=== PATIENT | male | born 1975 | race Hispanic/Latino ===

== ENCOUNTER 2021-09-22 18:56 | Inpatient (IN) | payer BC ==
[2021-09-22] MEDS ORDERED: ONDANSETRON 4 MG/2 ML VIAL ONE (19:29)
[2021-09-22] MEDS ORDERED: KETOROLAC 30 MG/ML INJ ONE (19:29)
[2021-09-22] MEDS ORDERED: MORPHINE 4 MG/ML SYR ONE ×2 (19:29→20:39)
[2021-09-22] MEDS ORDERED: NA CHLORIDE 0.9% 1,000 ML ONE (19:29)
[2021-09-22 19:53] LABS: Basophils % 0.5 % (0-1.3); Hematocrit 42.2 % (39.6-49.0); Lymphocytes % 15.7 % (15.3-44.8); MPV 7.3 fL (7.6-11.3); RBC Red Blood Cell Count 5.06 M/uL (4.33-5.43)
[2021-09-22 19:55] LABS: Protime INR 1.02
--- NOTE | 2021-09-22 20:06 | RAD REPORT ---
EXAM DESCRIPTION: RAD - Chest Single View - 09/22/2021 7:48 pm CLINICAL HISTORY: ABDOMINAL DISTENTION COMPARISON: Chest Pa And Lat (2 Views) dated 12/08/2016 FINDINGS: Lines: None. Lungs: No evidence of edema or pneumonia. Pleural: No significant pleural effusions or pneumothorax. Cardiac: The heart size is within normal limits. Bones: No acute fractures. Other: IMPRESSION: No acute cardiopulmonary disease.
--- NOTE | 2021-09-22 20:11 | RAD REPORT ---
EXAM DESCRIPTION: US - Abdomen Exam Limited - 09/22/2021 7:55 pm CLINICAL HISTORY: ABD PAIN COMPARISON: No comparisons FINDINGS: Cholelithiasis is present. No gallbladder wall thickening. No pericholecystic fluid. Negat mateo sonographic Oliver's sign. The common bile duct measures 5 millimeters is normal. IMPRESSION: Cholelithiasis without sonographic evidence of acute cholecystitis.
[2021-09-22 20:18] LABS: ALT/SGPT 35 U/L (12-78); AST/SGOT 22 U/L (15-37); Albumin 4.1 g/dL (3.4-5.0); Alkaline Phosphatase 67 U/L (45-117); BUN Blood Urea Nitrogen 15 mg/dL (7-18); Bicarbonate 25 mmol/L (21-32); Bilirubin Direct 0.1 mg/dL (0-0.2); Bilirubin Total 0.5 mg/dL (0.2-1.0); Glucose Level 142 mg/dL (74-106); Lipase 74 U/L (73-393); Magnesium 2.3 mg/dL (1.8-2.4); NT PRO-BNP 14 pg/mL (<125); Potassium 3.5 mmol/L (3.5-5.1); Protein, Total 8.3 g/dL (6.4-8.2); Sodium Level 141 mmol/L (136-145); Troponin (Emerg Dept Use Only) < 0.02 ng/mL (0.0-0.045)
[2021-09-22] MEDS ORDERED: FAMOTIDINE 20 MG/2 ML VIAL IV ONE (20:35)
[2021-09-22] MEDS ORDERED: PIPERACIL/TAZO 3.375 GM VIAL IV ONE (20:35)
[2021-09-22] MEDS ORDERED: NA CHLORIDE 0.9% 100 ML ONE (20:35)
--- NOTE | 2021-09-22 20:43 | ER ---
Nurse's Notes [facility] Name: Parminder Galindo Age: 45 yrs Sex: Male : 1975 Arrival Date: 09/22/2021 Time: 18:58 Bed 19 Private MD: Diagnosis: Abdominal tenderness;Acute cholecystitis;Essential (primary) hypertension Presentation: 09/22 19:14 Chief complaint: Patient states: upper abd pain radiates to right flank. Coronavirus df1 screen: Vaccine status: Patient reports receiving the 2nd dose of the covid vaccine. Ebola Screen: Patient negative for fever greater than or equal to 101.5 degrees Fahrenheit, and additional compatible Ebola Virus Disease symptoms Patient denies exposure to infectious person. Patient denies travel to an Ebola-affected area in the 21 days before illness onset. Initial Sepsis Screen: Does the patient meet any 2 criteria? No. Patient's initial sepsis screen is negative. Does the patient have a suspected source of infection? No. Patient's initial sepsis screen is negative. Risk Assessment: Do you want to hurt yourself or someone else? Patient reports no desire to harm self or others. Onset of symptoms was September 22, 2021 at 13:00. 19:14 Method Of Arrival: Ambulatory df1 19:14 Acuity: CRUZITO 3 df1 20:12 Note Pt present with upper abd pain radiates to right flank intermittent x 2 weeks. df1 Today's episode started at 1300. Pt scheduled for CT scan this Sunday. Historical: - Allergies: 19:16 No Known Allergies; df1 - Home Meds: 19:16 losartan 25 mg oral tab 1 tab [Active]; df1 - PMHx: 19:16 Hypertensive disorder; df1 - PSHx: 19:16 umbilical hernia; df1 - Immunization history:: Adult Immunizations not up to date, Client reports receiving the 2nd dose of the Covid vaccine. - Social history:: Smoking status: Patient denies any tobacco usage or history of. - Family history:: not pertinent. Screenin:27 Abuse screen: Denies threats or abuse. Nutritional screening: No deficits noted. cc4 Tuberculosis screening: No symptoms or risk factors identified. Fall Risk None identified. Assessment: 19:27 General: Appears distressed, uncomfortable, Behavior is cooperative, anxious, restless. cc4 Pain: Complains of pain in abdomen and right upper quadrant and epigastric area Pain currently is 10 out of 10 on a pain scale. at worst was 10 out of 10 on a pain scale. Quality of pain is described as aching, stabbing, gnawing, Pain began since 1300 today. Neuro: No deficits noted. Level of Consciousness is awake, alert, obeys commands, Oriented to person, place, time, situation. Cardiovascular: No deficits noted. Denies chest pain, Rhythm is sinus rhythm. Respiratory: No deficits noted. Airway is patent Breath sounds are clear bilaterally. GI: Abdomen is flat, non-distended, Bowel sounds present X 4 quads. Abd is soft X 4 quads Abdomen is tender to palpation in right upper quadrant and epigastric area Reports nausea. : No signs and/or symptoms were reported regarding the genitourinary system. EENT: No deficits noted. No signs and/or symptoms were reported regarding the EENT system. Eyes clear. Nares are clear Oral mucosa is dry. Derm: No deficits noted. Skin is intact. Musculoskeletal: No deficits noted. Capillary refill < 3 seconds, Range of motion: intact in all extremities. 19:30 Reassessment: # 20 g angiocath inserted right AC x 1 attempt \\T\\ converted to saline lock cc4 with blood drawn \\T\\ sent to lab; EKG completed; IV NS hung to saline lock right AC \\T\\ infusing \\T\\ bolus rates with no s/sx's of infiltration; medicated as ordered for pain/nausea. 20:00 Reassessment: PCXR completed; US of abdomen completed \\T\\ bedside; reports decreasing cc4 abd. pain to 7/10 on pain scale; calm \\T\\ present time; \\T\\ bedside. 20:45 Reassessment: Reports increasing pain right upper quad abd with Dr. Angelo in to see; cc4 morphine 4mg repeated slow IVP; pepcid 20 mg given slow IVP; IVPB Zosyn 3.375 mg hung \\T\\ infusing \\T\\ 200 m/hr/pump with no difficulty. 20:55 Reassessment: TO CT via stretcher. cc4 21:15 Reassessment: Returned from CT via stretcher; reports decreasing abd. pain 6/10 on pain cc4 scale. 21:48 Reassessment: Swabbed for covid-19 \\T\\ sent to lab, tol. snow. cc4 22:00 Reassessment: JULIENNE Zarate in to see with c/o increasing right upper quad \\T\\ cc4 epigastric pain to 8/10 on pain scale; new orders rec'd. 22:23 Reassessment: Medicated for pain; \\T\\ bedside; will con't to monitor. cc4 23:07 Reassessment: Patient appears in no apparent distress at this time. Awakened from cc4 sleep; reports abd. apin decreased to "5" on pain scale; VSS; \\T\\ bedside; instructed on admission into hospital with V/U. Patient states feeling better. Vital Signs: 19:14 BP 157 / 120; Pulse 66; Resp 18; Temp 97.5; Pulse Ox 100% on R/A; Weight 82.55 kg; df1 Height 5 ft. 6 in. (167.64 cm); Pain 10/10; 19:27 BP 150 / 96; Pulse 79; Resp 20; Temp 97.5(O); Pulse Ox 100% on R/A; cc4 20:00 BP 159 / 94; Pulse 76; Resp 20; Pulse Ox 100% on R/A; cc4 21:38 BP 156 / 90; Pulse 56; Resp 18; Pulse Ox 99% on R/A; cc4 22:00 BP 164 / 96; Pulse 85; Resp 20; Pulse Ox 99% on R/A; cc4 23:07 BP 160 / 92; Pulse 54; Resp 16; Temp 98.0(O); Pulse Ox 95% on R/A; cc4 19:14 Body Mass Index 29.38 (82.55 kg, 167.64 cm) df1 ED Course: 18:58 Patient arrived in ED. am2 19:16 Triage completed. df1 19:26 Benjamin Angelo MD is Attending Physician[facility] 19:27 Patient has correct armband on for positive identification. Placed in gown. Bed in low cc4 position. Call light in reach. Side rails up X 1. oracle consultant on. Pulse ox on. NIBP on. 19:27 EKG completed in triage. Results shown to MD. EKG done per protocol. Labs ordered per cc4 protocol. Drawn by ED staff. X-ray ordered. CT ordered. 19:32 Rozina Omer, RN is Primary Nurse. cc4 19:32 Basic Metabolic Panel Sent. cc4 19:32 CBC with Automated Diff Sent. cc4 19:32 CT Abd/Pelvis - IV Contrast Only Sent. cc4 19:32 US Abdomen Limited Sent. cc4 19:32 Lipase Sent. cc4 19:32 Basic Metabolic Panel Sent. cc4 19:32 Troponin (emerg Dept Use Only) Sent. cc4 19:32 PT-INR Sent. cc4 19:32 NT PRO-BNP Sent. cc4 19:32 Magnesium Sent. cc4 19:33 LFT's Sent. cc4 19:33 XRAY Chest (1 view) Sent. cc4 19:33 CBC with Diff Sent. cc4 19:48 XRAY Chest (1 view) In Process Unspecified. EDMS 19:55 US Abdomen Limited In Process Unspecified. EDMS 20:37 Theo Hitchcock MD is Hospitalizing Provider. henrietta 20:56 Arm band placed on right wrist. Emesis basin given. cc4 20:57 CT Abd/Pelvis - IV Contrast Only In Process Unspecified. EDMS 21:45 COVID-19 SARS RT PCR (Document "Date of Onset" if Symptomatic) Sent. cc4 21:45 SARS-COV-2 RT PCR Sent. cc4 23:24 No provider procedures requiring assistance completed. cc4 23:25 IV Converted IV to saline lock on right antecubital area cc4 Administered Medications: 19:30 Drug: Zofran (Ondansetron) 4 mg Route: IVP; Site: right antecubital; cc4 20:00 Follow up: Response: No adverse reaction cc4 19:30 Drug: NS 0.9% 1000 ml Route: IV; Rate: 1 bolus; Site: right antecubital; cc4 21:15 Follow up: IV Status: Completed infusion; IV Intake: 1000ml cc4 19:32 Drug: morphine 4 mg Route: IVP; Site: right antecubital; cc4 20:00 Follow up: Response: No adverse reaction; Pain is decreased cc4 19:34 Drug: Ketorolac 30 mg Route: IVP; Site: right antecubital; cc4 20:00 Follow up: Response: No adverse reaction; Pain is decreased cc4 20:45 Drug: Zosyn (piperacillin-tazobactam) 3.375 grams Route: IVPB; Infused Over: 60 mins; cc4 Site: right antecubital; 21:15 Follow up: Response: No adverse reaction cc4 21:30 Follow up: Response: No adverse reaction; IV Status: Completed infusion; IV Intake: cc4 100ml 20:45 Drug: Pepcid (famotidine) 20 mg Route: IVP; Site: right antecubital; cc4 21:15 Follow up: Response: No adverse reaction; Pain is decreased cc4 20:45 Drug: morphine 4 mg Route: IVP; Site: right antecubital; cc4 21:15 Follow up: Response: No adverse reaction; Pain is decreased cc4 22:12 Drug: [place] (HYDROcodone-acetaminophen) (7.5 mg-325 mg) 1 tabs Route: PO; cc4 22:30 Follow up: Response: No adverse reaction; Pain is decreased cc4 22:12 Drug: morphine 2 mg Route: IVP; Site: right antecubital; cc4 22:30 Follow up: Response: No adverse reaction; Pain is decreased cc4 Intake: 21:15 IV: 1000ml; Total: 1000ml. cc4 21:30 IV: 100ml; Total: 1100ml. cc4 Outcome: 20:42 Decision to Hospitalize by Provider. henrietta 23:24 Condition: improved cc 23:24 Admitted to Med/surg accompanied by tech, via stretcher, room 217, Report called to ccAlicia Bui RN. 23:24 Instructed on the need for admit, Demonstrated understanding of instructions. 09/23 00:11 Patient left the ED. 4 Signatures: Dispatcher [employer] Benjamin Kathleen MD MD cha Moreno, Amanda am2 Rozina Omer, RN RN cc4 Olga Payne df1
--- NOTE | 2021-09-22 20:43 | EDPHYS ---
Physician Documentation [facility] Name: Parminder Galindo Age: 45 yrs Sex: Male : 1975 Arrival Date: 09/22/2021 Time: 18:58 Bed 19 Private MD: ARY Physician Benjamin Angelo HPI: 09/22 20:32 This 45 yrs old Male presents to ER via Ambulatory with complaints of henrietta Abdominal Pain. 20:32 The patient presents with abdominal pain. henrietta Historical: - Allergies: 19:16 No Known Allergies; df1 - Home Meds: 19:16 losartan 25 mg oral tab 1 tab [Active]; df1 - PMHx: 19:16 Hypertensive disorder; df1 - PSHx: 19:16 umbilical hernia; df1 - Immunization history:: Adult Immunizations not up to date, Client reports receiving the 2nd dose of the Covid vaccine. - Social history:: Smoking status: Patient denies any tobacco usage or history of. - Family history:: not pertinent. ROS: 20:34 Constitutional: Negative for fever, chills, and weight loss, Eyes: Negative for injury, henrietta pain, redness, and discharge, ENT: Negative for injury, pain, and discharge, Neck: Negative for injury, pain, and swelling, Cardiovascular: Negative for chest pain, palpitations, and edema, Respiratory: Negative for shortness of breath, cough, wheezing, and pleuritic chest pain, Back: Negative for injury and pain, : Negative for injury, bleeding, discharge, and swelling, MS/Extremity: Negative for injury and deformity, Skin: Negative for injury, rash, and discoloration, Neuro: Negative for headache, weakness, numbness, tingling, and seizure, Psych: Negative for depression, anxiety, suicide ideation, homicidal ideation, and hallucinations, Allergy/Immunology: Negative for hives, rash, and allergies, Endocrine: Negative for neck swelling, polydipsia, polyuria, polyphagia, and marked weight changes, Hematologic/Lymphatic: Negative for swollen nodes, abnormal bleeding, and unusual bruising. 20:34 Abdomen/GI: Positive for abdominal pain, nausea and vomiting, of the epigastric area and right upper quadrant. Exam: 20:34 Constitutional: This is a well developed, well nourished patient who is awake, alert, henrietta and in no acute distress. Head/Face: Normocephalic, atraumatic. Eyes: Pupils equal round and reactive to light, extra-ocular motions intact. Lids and lashes normal. Conjunctiva and sclera are non-icteric and not injected. Cornea within normal limits. Periorbital areas with no swelling, redness, or edema. ENT: Nares patent. No nasal discharge, no septal abnormalities noted. Tympanic membranes are normal and external auditory canals are clear. Oropharynx with no redness, swelling, or masses, exudates, or evidence of obstruction, uvula midline. Mucous membranes moist. Neck: Trachea midline, no thyromegaly or masses palpated, and no cervical lymphadenopathy. Supple, full range of motion without nuchal rigidity, or vertebral point tenderness. No Meningismus. Chest/axilla: Normal chest wall appearance and motion. Nontender with no deformity. No lesions are appreciated. Cardiovascular: Regular rate and rhythm with a normal S1 and S2. No gallops, murmurs, or rubs. Normal PMI, no JVD. No pulse deficits. Respiratory: Lungs have equal breath sounds bilaterally, clear to auscultation and percussion. No rales, rhonchi or wheezes noted. No increased work of breathing, no retractions or nasal flaring. Back: No spinal tenderness. No costovertebral tenderness. Full range of motion. Male : Normal genitalia with no discharge or lesions. Skin: Warm, dry with normal turgor. Normal color with no rashes, no lesions, and no evidence of cellulitis. MS/ Extremity: Pulses equal, no cyanosis. Neurovascular intact. Full, normal range of motion. Neuro: Awake and alert, GCS 15, oriented to person, place, time, and situation. Cranial nerves II-XII grossly intact. Motor strength 5/5 in all extremities. Sensory grossly intact. Cerebellar exam normal. Normal gait. Psych: Awake, alert, with orientation to person, place and time. Behavior, mood, and affect are within normal limits. 20:34 ECG was reviewed by the Attending Physician. 20:34 Abdomen/GI: Inspection: abdomen appears normal, Bowel sounds: normal, active, Palpation: moderate abdominal tenderness, in the epigastric area and right upper quadrant, Liver: no appreciated palpable abnormalities, Hernia: not appreciated. Vital Signs: 19:14 BP 157 / 120; Pulse 66; Resp 18; Temp 97.5; Pulse Ox 100% on R/A; Weight 82.55 kg; df1 Height 5 ft. 6 in. (167.64 cm); Pain 10/10; 19:27 BP 150 / 96; Pulse 79; Resp 20; Temp 97.5(O); Pulse Ox 100% on R/A; cc4 20:00 BP 159 / 94; Pulse 76; Resp 20; Pulse Ox 100% on R/A; cc4 21:38 BP 156 / 90; Pulse 56; Resp 18; Pulse Ox 99% on R/A; cc4 22:00 BP 164 / 96; Pulse 85; Resp 20; Pulse Ox 99% on R/A; cc4 23:07 BP 160 / 92; Pulse 54; Resp 16; Temp 98.0(O); Pulse Ox 95% on R/A; cc4 19:14 Body Mass Index 29.38 (82.55 kg, 167.64 cm) df1 MDM: 19:27 Patient medically screened. henrietta 20:36 Differential diagnosis: cholecystitis, Cholelithiasis, gastritis, non-specific abd henrietta pain, pancreatitis, Peptic Ulcer Disease, Pyelonephritis. Data reviewed: vital signs, nurses notes, lab test result(s), EKG, radiologic studies, CT scan, plain films. Data interpreted: cafeteria monitor: rate is 100 beats/min, rhythm is regular, Pulse oximetry: on room air is 100 %. Test interpretation: by ED physician or midlevel provider: ECG, plain radiologic studies. Counseling: I had a detailed discussion with the patient and/or guardian regarding: the historical points, exam findings, and any diagnostic results supporting the discharge/admit diagnosis, lab results, radiology results, the need for further work-up and treatment in the hospital. 09/22 19:28 Order name: Basic Metabolic Panel [facility] 09/22 19:28 Order name: CBC with Diff [facility] 09/22 19:28 Order name: LFT's; Complete Time: 20:31 [facility] 09/22 19:28 Order name: Magnesium; Complete Time: 20:31 [facility] 09/22 19:28 Order name: NT PRO-BNP; Complete Time: 20:31 [facility] 09/22 19:28 Order name: PT-INR; Complete Time: 20:31 [facility] 09/22 19:28 Order name: Troponin (emerg Dept Use Only); Complete Time: 20:31 [facility] 09/22 19:28 Order name: XRAY Chest (1 view); Complete Time: 20:31 [facility] 09/22 19:28 Order name: Lipase; Complete Time: 20:31 [facility] 09/22 19:29 Order name: Basic Metabolic Panel; Complete Time: 20:31 [facility] 09/22 19:29 Order name: CBC with Automated Diff; Complete Time: 20:31 [facility] 09/22 21:09 Order name: COVID-19 SARS RT PCR (Document "Date of Onset" if Symptomatic) tt3 09/22 21:09 Order name: SARS-COV-2 RT PCR [facility] 09/22 22:16 Order name: Urine Dipstick-Ancillary [facility] 09/22 19:28 Order name: EKG; Complete Time: 19:30 [facility] 09/22 19:28 Order name: Cardiac monitoring; Complete Time: 19:33 [facility] 09/22 19:28 Order name: EKG - Nurse/Tech; Complete Time: 19:33 [facility] 09/22 19:28 Order name: IV Saline Lock; Complete Time: 19:33 [facility] 09/22 19:28 Order name: Labs collected and sent; Complete Time: 19:33 [facility] 09/22 19:28 Order name: US Abdomen Limited; Complete Time: 20:31 [facility] 09/22 19:28 Order name: CT Abd/Pelvis - IV Contrast Only; Complete Time: 22:00 [facility] 09/22 19:28 Order name: O2 Sat Monitoring; Complete Time: 19:33 [facility] 09/22 19:28 Order name: Urine Dipstick-Ancillary (obtain specimen); Complete Time: 22:11 [facility] EC:34 Rate is 62 beats/min. Rhythm is regular. QRS [place] is Normal. [place] interval is normal. QRS henri[place] interval is normal. QT interval is normal. No Q waves. T waves are Normal. No ST changes noted. Clinical impression: Normal ECG and No evidence of ischemia. Interpreted by me. Reviewed by me. Administered Medications: 19:30 Drug: Zofran (Ondansetron) 4 mg Route: IVP; Site: right antecubital; cc4 20:00 Follow up: Response: No adverse reaction cc4 19:30 Drug: NS 0.9% 1000 ml Route: IV; Rate: 1 bolus; Site: right antecubital; cc4 21:15 Follow up: IV Status: Completed infusion; IV Intake: 1000ml cc4 19:32 Drug: morphine 4 mg Route: IVP; Site: right antecubital; cc4 20:00 Follow up: Response: No adverse reaction; Pain is decreased cc4 19:34 Drug: Ketorolac 30 mg Route: IVP; Site: right antecubital; cc4 20:00 Follow up: Response: No adverse reaction; Pain is decreased cc4 20:45 Drug: Zosyn (piperacillin-tazobactam) 3.375 grams Route: IVPB; Infused Over: 60 mins; cc4 Site: right antecubital; 21:15 Follow up: Response: No adverse reaction cc4 21:30 Follow up: Response: No adverse reaction; IV Status: Completed infusion; IV Intake: cc4 100ml 20:45 Drug: Pepcid (famotidine) 20 mg Route: IVP; Site: right antecubital; cc4 21:15 Follow up: Response: No adverse reaction; Pain is decreased cc4 20:45 Drug: morphine 4 mg Route: IVP; Site: right antecubital; cc4 21:15 Follow up: Response: No adverse reaction; Pain is decreased cc4 22:12 Drug: [place] (HYDROcodone-acetaminophen) (7.5 mg-325 mg) 1 tabs Route: PO; cc4 22:30 Follow up: Response: No adverse reaction; Pain is decreased cc4 22:12 Drug: morphine 2 mg Route: IVP; Site: right antecubital; cc4 22:30 Follow up: Response: No adverse reaction; Pain is decreased cc4 Disposition Summary: 09/22/21 20:42 Hospitalization Ordered Hospitalization Status: Observation henrietta Provider: Theo Hitchcock cha Location: Telemetry/MedSurg (observation) henrietta Condition: Stable henrietta Problem: new henrietta Symptoms: have improved henrietta Bed/Room Type: Standard henrietta Room Assignment: 217(09/22/21 22:36) mw Diagnosis - Abdominal tenderness henrietta - Acute cholecystitis henrietta - Essential (primary) hypertension henrietta Forms: - Medication Reconciliation Form henrietta - SBAR form henrietta Signatures: Dispatcher [employer] EDMS Ileana Guzman RN RN mw Anderson, Corey, MD MD cha Cooper, Christie, RN RN cc4 Olga Payne df1 Corrections: (The following items were deleted from the chart) 22:36 20:42 henrietta mw
--- NOTE | 2021-09-22 21:06 | RAD REPORT ---
EXAM DESCRIPTION: CTAbdomen Pelvis W Contrast - 09/22/2021 8:57 pm CLINICAL HISTORY: ABD PAIN COMPARISON: Abdomen Exam Limited dated 09/22/2021 TECHNIQUE: CT of the abdomen and pelvis was performed. All CT scans are performed using dose optimization technique as appropriate and may include automated exposure control or mA/KV adjustment according to patient size. FINDINGS: Lower chest: Mild circumferential thickened distal esophagus. Liver: No acute abnormality or suspicious lesions. Biliary: Distended gallbladder with pericholecystic inflammatory changes. Stomach: No significant focal abnormality. Duodenum: No significant focal abnormality. Pancreas: No significant abnormality. Spleen: No significant abnormality. Adrenal: No suspicious lesions. Kidney/ureter: No hydronephrosis. No renal calculi. Retroperitoneum: No retroperitoneal adenopathy. Vascular: No aneurysm. Bowel: No significant focal abnormality. Peritoneum: No ascites or free air. Fat containing inguinal hernias. Bladder: Grossly unremarkable. Reproductive: No adnexal masses. Bones: No acute fracture. Other: n/a IMPRESSION: Pericholecystic inflammatory changes concerning for acute cholecystitis, despite the son ographic findings. Correlate with LFTs. HIDA scan could also better evaluate if clinically indicated.
[2021-09-22] MEDS ORDERED: HYDROCODONE/APAP 7.5/325 MG TAB ONE (22:02)
[2021-09-22] MEDS ORDERED: MORPHINE 2 MG/ML SYR ONE (22:04)
[2021-09-22 22:16] LABS: Urine Blood Trace-intact (Negative); Urine Glucose Negative (Negative); Urine Protein Negative (Negative)
--- NOTE | 2021-09-22 22:16 | P.HP ---
Certification for Inpatient Patient admitted to: Inpatient With expected LOS: <2 Midnights Patient will require the following post-hospital care: None Practitioner: I am a practitioner with admitting privileges, knowledge of patient current condition, hospital course, and medical plan of care. Services: Services provided to patient in accordance with Admission requirements found in Title 42 Section 412.3 of the Code of Federal Regulations Patient History Date of Service: 09/22/21 Primary Care Provider: Cathie Reason for admission: cholecystitis History of Present Illness: Mr. Galindo is a 45 yo male wiht HTN who presents with 10/10 RUQ pain beginning this afternoon after he ate a hamburger. This pain had been intermittent over the past two weeks. He reports nausea, vomiting, night sweats and chills. He was awaiting an outpatient CT scan when his symptoms worsened today so he reported to the ED. Received antibiotics, fluids and pain management in the ED. WBC 12.8, Glu 142. IMPRESSION: Pericholecystic inflammatory changes concerning for acute cholecystitis, despite the sonographic findings. - Past Medical/Surgical History -: HTN -: umbilical hernia repair Psychosocial/ Personal History: - Social History Smoking Status: Never smoker Alcohol use: No CD- Drugs: No Caffeine use: Yes Place of Residence: Home Review of Systems 10-point ROS is otherwise unremarkable General: Fever, Chills, Sweats Eyes: Unremarkable ENT: Unremarkable Respiratory: Unremarkable Cardiovascular: Unremarkable Gastrointestinal: Nausea, Vomiting, Abdominal Pain Genitourinary: Unremarkable Musculoskeletal: Unremarkable Integumentary: Unremarkable Neurological: Unremarkable Lymphatics: Unremarkable Physical Examination - Physical Exam General: Alert, In no apparent distress HEENT: Atraumatic, PERRLA, Mucous membr. moist/pink, EOMI, Sclerae nonicteric Neck: Supple, 2+ carotid pulse no bruit, No LAD, Without JVD or thyroid abnormality Respiratory: Clear to auscultation bilaterally, Normal air movement Cardiovascular: Regular rate/rhythm, Normal S1 S2 Gastrointestinal: Normal bowel sounds, Tenderness Musculoskeletal: No tenderness Integumentary: No rashes Neurological: Normal gait, Normal speech, Normal strength at 5/5 x4 extr, Normal tone, Normal affect Lymphatics: No axilla or inguinal lymphadenopathy - Studies Laboratory Data (last 24 hrs) 09/22/21 19:30: PT 11.7, INR 1.02 09/22/21 19:30: WBC 12.80 H, Hgb 14.1, Hct 42.2, Plt Count 287 09/22/21 19:30: Sodium 141, Potassium 3.5, BUN 15, Creatinine 1.25, Glucose 142 H, Magnesium 2.3, Total Bilirubin 0.5, AST 22, ALT 35, Alkaline Phosphatase 67, Lipase 74 Assessment and Plan - Problems (Diagnosis) (1) Cholecystitis Current Visit: Yes Status: Acute (2) HTN (hypertension) Current Visit: Yes Status: Chronic Qualifiers: Hypertension type: primary hypertension Qualified Code(s): I10 - Essential (primary) hypertension - Plan surgery consulted NPO after midinight, IVF hydration, IV antibiotics pain management as needed hydralazine PRN for BP spikes A1c pending SCDs Discharge Plan: Home Plan to discharge in: 48 Hours - Advance Directives Does patient have a Living Will: No Does patient have a Durable POA for Healthcare: No - Code Status/Comfort Care Code Status Assessed: Yes (full code ) Critical Care: No Time Spent Managing Pts Care (In Minutes): 70
[2021-09-22] MEDS: NA CHLORIDE 0.9% 1,000 ML IV SCH (23:54)
[2021-09-22] MEDS ORDERED: HYDRALAZINE HCL 20 MG/ML VIAL IV PRN (23:54)
[2021-09-22] MEDS ORDERED: ACETAMINOPHEN 500 MG TAB PO PRN (23:54)
[2021-09-23 00:08] VITALS: BMI 29.3
[2021-09-23] MEDS ORDERED: NA CHLORIDE 0.9% 0 ML ONE (00:20)
[2021-09-23] MEDS: PIPER TAZO 3.375 GM in NA CHLORIDE 0.9% 100 ML IV SCH ×4 (01:38→23:19)
[2021-09-23] MEDS: MORPHINE 4 MG/ML SYR IV PRN ×3 (01:39→09:45)
[2021-09-23] MEDS ORDERED: GLUCAGON 1 MG/VIAL IM PRN (02:23)
[2021-09-23] MEDS ORDERED: D50W 25 GM/50 ML SYRINGE IV PRN (02:23)
[2021-09-23 04:09] LABS: Basophils % 0.2 % (0-1.3); Hematocrit 41.8 % (39.6-49.0); Lymphocytes % 7.1 % (15.3-44.8); MPV 7.4 fL (7.6-11.3)
[2021-09-23 04:31] LABS: Albumin 3.6 g/dL (3.4-5.0); Bilirubin Total 0.9 mg/dL (0.2-1.0); Magnesium 2.3 mg/dL (1.8-2.4); Phosphorus 3.6 mg/dL (2.5-4.9); Potassium 4.5 mmol/L (3.5-5.1); Protein, Total 7.8 g/dL (6.4-8.2); Thyroid Stimulating Hormone 0.205 uIU/mL (0.360-3.740)
[2021-09-23] MEDS: ONDANSETRON 4 MG/2 ML VIAL IV PRN ×2 (04:37→09:45)
[2021-09-23] MEDS: INSULIN -REGULAR HUMAN 50 UNIT/0.5 ML ML SQ SCH ×4 (06:00→21:00)
[2021-09-23] MEDS ORDERED: INSULIN -REGULAR HUMAN 50 UNIT/0.5 ML ML SQ SCH (07:30)
[2021-09-23] MEDS: NA CHLORIDE 0.9% 1,000 ML IV SCH (07:39)
--- NOTE | 2021-09-23 11:08 | PREOPCON ---
Date of Consultation: 09/30/2021 Reason: Abdominal pain. History Of Present Illness: The patient is a 45-year-old gentleman who comes in with 2-week history of biliary colic which worsened yesterday after eating chili. In the past he has eaten hamburger wit h postprandial epigastric and right upper quadrant pain associated with nausea, vomiting, occasional bloating, belching and heartburn. No diarrhea or constipation. No blood in the stool. No dysuria o r hematuria. No sore throat, runny nose, cough, headaches, or dizziness. No chest pain. No fever o r chills. Review of Systems: Otherwise unremarkable. Past Medical History: Significant for hypertension. Past Surgical History: Umbilical hernia repair. Allergies: NO ALLERGIES. Social History: The patient does not smoke or drink. Family History: Significant for gallbladder disease. Physical Examination: Vital Signs: His vital signs are stable. He is currently afebrile. General: He is awake, alert, and oriented x3. Head and Neck: No evidence of icterus. Cranial nerves 2 through 12 are grossly within normal limits . Neck: No neck masses. No JVD. Throat clear. Neck is supple. Chest: Clear. Heart: S1 and S2. Abdomen: Soft, nondistended. Positive right upper quadrant tenderness. No rebound, rigidity, or gu arding. Extremities: Adequately perfused. Nontender. Neuro: Nonfocal. Laboratory Data: Reviewed. His white count is 13.8 with a left shift. Chemistry reviewed. His LFT s are within normal limits. His ultrasound shows cholelithiasis and CAT scan of the abdomen and pelv is shows stranding around the gallbladder suspicious for cholecystitis. Assessment: Acute cholecystitis and cholelithiasis. Plan: Admit n.p.o., IV fluid, IV antibiotic, to the OR for laparoscopic cholecystectomy, possible op en. The patient understands the risks, benefits, and alternatives and agrees to procedure. /MODL Voice ID: [id number] Report ID: [id number]
[2021-09-23] MEDS ORDERED: PROMETHAZINE INJ 25 MG/ML AMP ONE (11:23)
[2021-09-23] MEDS ORDERED: propofoL 200 MG/20 ML VIAL IV ONE (11:51)
[2021-09-23] MEDS ORDERED: MIDAZOLAM HCL 2 MG/2 ML INJ ONE (11:51)
[2021-09-23] MEDS ORDERED: FENTANYL CITR 100 MCG/2 ML ONE (11:51)
[2021-09-23] MEDS ORDERED: dexAMETHasone 10 MG/ML VIAL ONE ×2 (11:51→13:20)
[2021-09-23] MEDS ORDERED: ONDANSETRON 4 MG/2 ML VIAL ONE (11:52)
[2021-09-23] MEDS ORDERED: ROCURONIUM 50 MG/5 ML VIAL IV ONE ×2 (11:52→13:19)
[2021-09-23] MEDS ORDERED: LIDOCAINE 1% MPF 30 ML VIAL ONE (11:52)
[2021-09-23] MEDS ORDERED: KETOROLAC 30 MG/ML INJ ONE (11:52)
[2021-09-23] MEDS ORDERED: BUPIVACAINE 0.5% PF 10 ML VIAL ONE (11:53)
[2021-09-23] MEDS ORDERED: SUCCINYLCHOLINE 20 MG/ML (10 ML) IV ONE (12:09)
[2021-09-23] MEDS ORDERED: ALBUMIN HUM 5% 500 ML IV ONE (12:55)
[2021-09-23] MEDS ORDERED: BUPIVACAINE 0.25% PF 30 ML VIAL ONE (12:56)
[2021-09-23] MEDS ORDERED: NS 0.9% VIAL 20 ML ONE (13:24)
[2021-09-23] MEDS ORDERED: dexAMETHasone 4 MG/ML VIAL ONE (13:28)
--- NOTE | 2021-09-23 13:40 | P.OP ---
Second Worker: Bert JUARES Preoperative diagnosis: Acute Cholecystitis and Cholelithiasis Postoperative diagnosis: same with ischemic changes Primary procedure: Diag Lap, Open Cholecystectomy Anesthesia: General Estimated blood loss: min Specimen: GB Findings: as above Complications: None Transferred to: Recovery Room Condition: Good
[2021-09-23] MEDS ORDERED: SUGAMMADEX SODIUM 200 MG/2 ML VIAL IV ONE (13:58)
[2021-09-23] MEDS ORDERED: ONDANSETRON 4 MG/2 ML VIAL IV PRN (14:15)
[2021-09-23] MEDS ORDERED: MEPERIDINE HCL 25 MG/ML SYR ONE (14:43)
--- NOTE | 2021-09-23 15:28 | P.PN ---
Subjective Date of Service: 09/23/21 Primary Care Provider: Cathie Chief Complaint: cholecystitis Diagnostic lap cholecystectomy and open cholecystectomy done for gangrenous cholecystitis. Physical Examination - Vital Signs Temperature: 98.0 F Blood Pressure: 122/77 Pulse: 73 Respirations: 16 Pulse Ox (%): 95 - Physical Exam General: Alert, In no apparent distress, Oriented x3 HEENT: Mucous membr. moist/pink Neck: JVD not distended Respiratory: Clear to auscultation bilaterally, Normal air movement Cardiovascular: No edema, Regular rate/rhythm, Normal S1 S2 Gastrointestinal: Soft and benign, Non-distended Musculoskeletal: No swelling Integumentary: No rashes Neurological: Normal strength at 5/5 x4 extr - Studies Laboratory Data (last 24 hrs) 09/22/21 19:30: PT 11.7, INR 1.02 09/22/21 19:30: WBC 12.80 H, Hgb 14.1, Hct 42.2, Plt Count 287 09/22/21 19:30: Sodium 141, Potassium 3.5, BUN 15, Creatinine 1.25, Glucose 142 H, Magnesium 2.3, Total Bilirubin 0.5, AST 22, ALT 35, Alkaline Phosphatase 67, Lipase 74 Assessment And Plan - Current Problems (Diagnosis) (1) Acute gangrenous cholecystitis Current Visit: Yes Status: Acute (2) HTN (hypertension) Current Visit: Yes Status: Chronic Qualifiers: Hypertension type: primary hypertension Qualified Code(s): I10 - Essential (primary) hypertension - Plan Continue IV Zosyn. Patient kept n.p.o. overnight. IV hydration. Pain management as needed. General surgery is following. Monitor and optimize electrolytes.
[2021-09-23] MEDS: D5 0.9 NS 1,000 ML IV SCH ×2 (15:41→23:22)
[2021-09-23] MEDS: HYDROMORPHONE HCL 1 MG/ML INJ IV PRN (21:10)
--- NOTE | 2021-09-23 22:27 | OP ---
Date of Procedure: 09/23/2021 Surgeon: Terrence Torrez MD Marketing Editor: BLANQUITA Spain Preoperative Diagnosis: Acute cholecystitis and cholelithiasis. Postoperative Diagnosis: Acute cholecystitis and cholelithiasis with extensive adhesions. Procedures Performed: Diagnostic laparoscopy, open cholecystectomy with lysis of adhesions. Blood Loss: Minimal. Specimen: Gallbladder. Findings: Ischemic cholecystitis with extensive adhesions. Anesthesia: General. Complications: None. Disposition: The patient tolerated the procedure in stable condition and taken to Recovery in good g eneral condition. Procedure In Detail: The patient was brought to the OR and placed in supine position. General anest hesia begun. The patient was prepped and draped in usual sterile fashion. Marcaine 0.5% was infiltr ated locally. A 15-blade was used to make a 1 cm infraumbilical midline incision. Subcutaneous tiss ue divided. Fascia was identified and divided. #1 Vicryl stay suture was placed. Peritoneal cavity entered with sharp and blunt dissection. 12 mm trocar placed into the peritoneal cavity under direct vision. Pneumoperitoneum was established. Then, a 5 mm trocar was placed in the epigastrium just t o the right of midline and 2 in the right subcostal region. Laparoscopy revealed extensive adhesions to the gallbladder. Gallbladder x-ray could not be visualized. Care was taken to try to remove the se adhesions with sharp and blunt dissection. However it was very adherent to the gallbladder and co uld not get a good look at the gallbladder and there was old plane between the adhesions and the gall bladder and therefore I felt it would be safer to proceed with an open procedure. Therefore a right subcostal incision was made. Scope was withdrawn and trocars were withdrawn and then subcutaneous ti ssue divided. Fascia in midline divided. A posterior sheath divided, peritoneal cavity entered. Th e liver mobilized to bring the gallbladder into the wound and then sharp and blunt dissection careful ly utilized to remove the omentum adhesions that were encasing the gallbladder in all directions. Th e gallbladder was identified. It had ischemic early gangrenous changes that was greatly inflamed. S ubsequently it was a very distended so this was aspirated and then retrograde dissection took place o f the liver bed. Bleeding controlled with cautery and the gallbladder dissected free from the liver bed and cystic duct and cystic artery identified with sharp and blunt dissection. Both were controll ed with 2-0 silk ties and warren and then the gallbladder was removed sent to Pathology. Wound was irrigated. Bleeding controlled with cautery and there was minimal oozing noted from the liver bed. No significant bleeding noted. Surgicel was placed. After thorough irrigation was done, effluent wa s clear. There was no evidence of bleeding or bile leakage appreciated. Then all counts were correc t at which point, the posterior sheath was closed with running #1 chromic subcu, wounds irrigated. B leeding controlled with cautery and then #2 nylon was used to close the fascia. Wound irrigated, ble eding controlled with cautery. Stay sutures at the umbilicus were closed to close the fascial defect . An inferior chromic used to approximate the subcutaneous tissue and staple used to close skin. St erile dressing applied. The patient was awakened and taken to Recovery in good general condition. /MODL Voice ID: [id number] Report ID: [id number]
[2021-09-23] MEDS ORDERED: NA CHLORIDE 0.9% 100 ML ONE (23:05)
[2021-09-24] MEDS: HYDROMORPHONE HCL 1 MG/ML INJ IV PRN ×5 (00:14→21:21)
[2021-09-24 05:55] LABS: Absolute Lymphocytes (CBC) 0.9 K/uL (0.7-4.9); Hematocrit 37.1 % (39.6-49.0); Lymphocytes % 5.3 % (15.3-44.8); MPV 7.4 fL (7.6-11.3); RBC Red Blood Cell Count 4.48 M/uL (4.33-5.43)
[2021-09-24 06:14] LABS: Magnesium 2.3 mg/dL (1.8-2.4); Phosphorus 1.3 mg/dL (2.5-4.9); Potassium 3.9 mmol/L (3.5-5.1)
[2021-09-24] MEDS ORDERED: Magnesium Sulfate 2gm IVPB 2 G/50 ML BAG IV ONE (07:15)
[2021-09-24] MEDS: INSULIN -REGULAR HUMAN 50 UNIT/0.5 ML ML SQ SCH ×4 (07:16→21:00)
[2021-09-24] MEDS: HYDROCODONE/APAP 7.5/325 MG TAB PO PRN (07:49)
[2021-09-24] MEDS: PIPER TAZO 3.375 GM in NA CHLORIDE 0.9% 100 ML IV SCH ×2 (07:50→17:24)
[2021-09-24] MEDS ORDERED: POTASSIUM PHOS IN 0.9 % NACL 15 MMOL/250 ML BAG IV ONE (08:00)
[2021-09-24] MEDS ORDERED: POTASS/SODIUM PHOSPHATE 1 PKT POWD.PACK PO SCH (08:00)
[2021-09-24 08:35] LABS: Platelet Estimate ADEQ; White Blood Cell Scan OK (OK)
[2021-09-24 08:36] LABS: Blood Morphology Comment NOT SEEN (NOT SEEN)
[2021-09-24] MEDS ORDERED: POTASSIUM 25 MEQ EFFERV TAB PO ONE (09:00)
--- NOTE | 2021-09-24 10:54 | PN ---
Date of Progress Note: 09/24/2021 Subjective: The patient is awake, alert. Pain is well controlled; however he still on clear liquids . Do not feel like he wants advance diet yet. Objective: Vital Signs: His vitals are stable. He is afebrile. Abdomen: Soft, nondistended, minimal incisional tenderness. No rebound, rigidity, or guarding. Extremities: Adequately perfused. Nontender. Neuro: Nonfocal. Laboratory Data: Reviewed. He does have leukocytosis. Assessment: Status post open cholecystectomy for acute ischemic cholecystitis and cholelithiasis. Recommendations: Continue IV antibiotics, parenteral pain management. Encourage ambulation. Incent mateo spirometry. The patient is clinically doing well. Probable discharge in 24-48 hours. /MODL Voice ID: [id number] Report ID: [id number]
[2021-09-24] MEDS: D5 0.9 NS 1,000 ML IV SCH ×2 (12:00→19:38)
--- NOTE | 2021-09-24 12:39 | P.PN ---
Subjective Date of Service: 09/24/21 Primary Care Provider: Cathie Chief Complaint: cholecystitis No issues overnight. Patient at the moment prefers full liquid diet rather than soft diet. No fever. He stated he is passing gas. Leukocytosis is slightly worse today. Physical Examination - Vital Signs Temperature: 98.2 F Blood Pressure: 125/81 Pulse: 72 Respirations: 18 Pulse Ox (%): 98 - Physical Exam General: Alert, In no apparent distress, Oriented x3 Neck: JVD not distended Respiratory: Clear to auscultation bilaterally, Normal air movement Cardiovascular: No edema, Regular rate/rhythm, Normal S1 S2 Gastrointestinal: Normal bowel sounds, Soft and benign, Non-distended, Other (Abdominal binder in place. Abdominal surgical wound looks dry) Musculoskeletal: No swelling Integumentary: No rashes Neurological: Normal strength at 5/5 x4 extr Assessment And Plan - Current Problems (Diagnosis) (1) Acute gangrenous cholecystitis Current Visit: Yes Status: Acute (2) HTN (hypertension) Current Visit: Yes Status: Chronic Qualifiers: Hypertension type: primary hypertension Qualified Code(s): I10 - Essential (primary) hypertension - Plan Continue IV Zosyn. Full liquid diet Continue IV hydration. Pain management as needed. Patient was given regional block for pain control. No MARCUS drains. General surgery is following. Monitor and optimize electrolytes. Activity as tolerated.
[2021-09-25] MEDS: HYDROMORPHONE HCL 1 MG/ML INJ IV PRN ×3 (01:06→06:49)
[2021-09-25] MEDS: HYDROCODONE/APAP 7.5/325 MG TAB PO PRN ×3 (01:14→14:14)
[2021-09-25] MEDS: PIPER TAZO 3.375 GM in NA CHLORIDE 0.9% 100 ML IV SCH ×2 (01:49→08:05)
[2021-09-25] MEDS: D5 0.9 NS 1,000 ML IV SCH (01:50)
[2021-09-25 03:40] VITALS: O2SAT 99
[2021-09-25 06:41] LABS: Phosphorus 1.3 mg/dL (2.5-4.9); Potassium 3.7 mmol/L (3.5-5.1)
[2021-09-25] MEDS: INSULIN -REGULAR HUMAN 50 UNIT/0.5 ML ML SQ SCH ×2 (07:30→11:30)
[2021-09-25] MEDS: POTASS/SODIUM PHOSPHATE 1 PKT POWD.PACK PO SCH ×3 (08:06→11:06)
[2021-09-25] MEDS ORDERED: POTASSIUM CL SA 10 MEQ TAB PO ONE (09:00)
[2021-09-25 11:03] LABS: Absolute Lymphocytes (CBC) 2.1 K/uL (0.7-4.9); Basophils % 0.3 % (0-1.3); Hematocrit 36.8 % (39.6-49.0); Lymphocytes % 17.7 % (15.3-44.8); MPV 7.1 fL (7.6-11.3); RBC Red Blood Cell Count 4.44 M/uL (4.33-5.43)
--- NOTE | 2021-09-25 11:31 | PN ---
Date of Progress Note: 09/25/2021 Subjective: The patient is awake, alert, tolerating diet, full liquids. He is going to be advanced to soft diet later today. He is afebrile. Pain is controlled on oral pain medication. Objective: Vital Signs: Stable. Afebrile. Abdomen: Soft, nondistended, nontender. Positive bowel sounds. Dressing clean dry and intact. Assessment: Status post open cholecystectomy. Recommendation: If the patient tolerates his lunch, he can be discharged home on Augmentin and follo w up with me in a week. Discharge instructions given. Case discussed with Dr. Suarez. /MODL Voice ID: [id number] Report ID: [id number]
--- NOTE | 2021-09-25 12:29 | P.DS ---
Admission Date: 09/22/21 Discharge Date: 09/25/21 Primary Care Provider: Cathie Disposition: ROUTINE DISCHARGE Discharge Condition: GOOD Reason for Admission: cholecystitis Consultations: General surgery-Dr. Torrez - Problems (1) Acute gangrenous cholecystitis Current Visit: Yes Status: Acute (2) HTN (hypertension) Current Visit: Yes Status: Chronic Qualifiers: Hypertension type: primary hypertension Qualified Code(s): I10 - Essential (primary) hypertension Brief History of Present Illness: 45 yo male wiht HTN presented with 10/10 RUQ pain after he ate a hamburger. He had intermittent pain over two weeks. He reported nausea, vomiting, night sweats and chills. He was awaiting an outpatient CT scan when his symptoms worsened and so he reported to the ED. He received antibiotics, fluids and pain management in the ED. WBC 12.8, Glu 142. CT abdomen and pelvis demonstrated pericholecystic inflammatory changes concerning for acute cholecystitis. Patient admitted for further management. Hospital Course: Patient admitted to the medical floor and treated with IV Zosyn. He was seen and evaluated by general surgery Dr. Torrez who performed diagnostic laparoscope and open cholecystectomy for gangrenous gallbladder. Patient had leukocytosis. He was kept inpatient after the surgery and treated with IV Zosyn. Leukocytosis significantly improved. His pain was under control. Patient had a bowel movement and tolerated diet. He was ambulating. Patient deemed stable for discharge per Dr. Torrez. He is discharged with Augmentin. Vital Signs/Physical Exam: Temp Pulse Resp BP Pulse Ox 98.5 F 86 19 153/96 H 97 09/25/21 08:00 09/25/21 08:00 09/25/21 09:54 09/25/21 08:00 09/25/21 09:54 General: Alert, In no apparent distress, Oriented x3 Neck: Supple, JVD not distended Respiratory: Clear to auscultation bilaterally, Normal air movement Cardiovascular: No edema, Regular rate/rhythm, Normal S1 S2 Gastrointestinal: Other (Abdominal binder in place) Musculoskeletal: No swelling Integumentary: No rashes Neurological: Normal strength at 5/5 x4 extr Laboratory Data at Discharge: WBC 12.00 K/uL (4.3-10.9) H D 09/25/21 10:52 Hgb 12.2 g/dL (13.6-17.9) L 11/07/21 10:52 Hct 36.8 % (39.6-49.0) L 09/25/21 10:52 Plt Count 279 K/uL (152-406) 09/25/21 10:52 PT 11.7 SECONDS (9.5-12.5) 09/22/21 19:30 INR 1.02 09/22/21 19:30 Sodium 143 mmol/L (136-145) 09/25/21 05:42 Potassium 3.7 mmol/L (3.5-5.1) 09/25/21 05:42 BUN 11 mg/dL (7-18) 09/25/21 05:42 Creatinine 1.13 mg/dL (0.55-1.3) 09/25/21 05:42 Glucose 116 mg/dL (74-106) H 09/25/21 05:42 Phosphorus 1.3 mg/dL (2.5-4.9) L 09/25/21 05:42 Magnesium 2.3 mg/dL (1.8-2.4) 09/24/21 05:08 Total Bilirubin 0.9 mg/dL (0.2-1.0) 09/23/21 03:46 AST 19 U/L (15-37) 09/23/21 03:46 ALT 33 U/L (12-78) 09/23/21 03:46 Alkaline Phosphatase 62 U/L (45-117) 09/23/21 03:46 Triglycerides 51 mg/dL (<150) 09/23/21 03:46 Cholesterol 151 mg/dL (<200) 09/23/21 03:46 HDL Cholesterol 39 mg/dL (40-60) L 09/23/21 03:46 Cholesterol/HDL Ratio 3.87 09/23/21 03:46 Lipase 74 U/L (73-393) 09/22/21 19:30 Home Medications: Losartan/Hydrochlorothiazide [Losartan-Hctz 50-12.5 mg Tab] 50 mg PO DAILY 09/23/21 Amox/Clavulanate [Augmentin 875-125 Tab] 875 mg PO BID #20 tab 09/25/21 Codeine/APAP [Tylenol W/Codeine #3 tab] 1 tab PO Q4HP PRN #40 tab 11/07/21 New Medications: Codeine/APAP [Tylenol W/Codeine #3 tab] 1 tab PO Q4HP PRN #40 tab PRN Reason: Pain Amox/Clavulanate [Augmentin 875-125 Tab] 875 mg PO BID #20 tab Physician Discharge Instructions: May shower Keep wound clean and dry Diet: Low sodium Activity: No lifting more than 10 lbs Followup: [facility] [Primary Care Provider] - Terrence Torrez MD [ACTIVE - CAN ADMIT] - 1 Week (call to schedule an appointment ) Time spent managing pt's care (in minutes): 37
[2021-09-25 13:48] VITALS: BP 161/93; TEMP 99
== END 2021-09-25 15:24 | disposition home or self-care (01) | DRG 416 ==
LOC: ER 18:56 → ERHOLD 21:12 → 2ND 23:23
PROVIDERS: ADMIT Internal Medicine; ATTEND Internal Medicine
PROC: 0FJ44ZZ Inspection of Gallbladder, Percutaneous Endoscopic Approach (ICD-10-PCS; 2021-09-23)
PROC: 0FN40ZZ Release Gallbladder, Open Approach (ICD-10-PCS; 2021-09-23)
PROC: 0FT40ZZ Resection of Gallbladder, Open Approach (ICD-10-PCS; principal; 2021-09-23 11:45)
DX: K80.00 Calculus of gallbladder with acute cholecystitis without obstruction (principal); K82.A1 Gangrene of gallbladder in cholecystitis; D72.829 Elevated white blood cell count, unspecified; K66.0 Peritoneal adhesions (postprocedural) (postinfection); I10 Essential (primary) hypertension; Z79.899 Other long term (current) drug therapy; Z20.822 Contact with and (suspected) exposure to COVID-19; Z53.31 Laparoscopic surgical procedure converted to open procedure
CPT/HCPCS: 36415; 71045; 74177; 76705; 80048; 80053; 80061; 80076; 81003; 82947; 83036; 83690; 83735; 83880; 84100; 84439; 84443; 84484; 85025; 85610; 88304; 94010; 94760; 96361; 96365; 96375; 99285; J0330; J0360; J1100; J1170; J2175; J2250; J2270; J2405; J2543; J2550; J2704; J3010; J7030; J7042; P9045; Q9967; U0003